=== PATIENT | male | born 1955 | race Caucasian/White ===

== ENCOUNTER → 2017-06-09 | Outpatient (CLI) | payer BC ==
[~2017-06-09] MED LIST: IBUP600T44 PO; OPTIRAY 320 IV PRN
--- NOTE | 2017-06-09 11:40 | DIAGNOSTIC IMAGING REPORT ---
ABDOMEN AND PELVIS CT WITH IV CONTRAST CT DOSE: 828.20 mGy.cm HISTORY: Left lower quadrant abdominal pain. TECHNIQUE: Multiaxial CT images of the abdomen and pelvis were performed following the use of intravenous contrast. A dose lowering technique was utilized adhering to the principles of ALARA. COMPARISON STUDY: Abdomen and pelvis CT 02/23/2015. FINDINGS: Stable 5 mm subpleural nodule within the left lower lobe. Therefore, this is considered to be benign. No pneumoperitoneum. No pneumatosis. No suspicious lytic or blastic osseous lesions. Cholecystectomy. The liver, left adrenal gland, and pancreas are unremarkable. There are few calcified granulomas within the spleen. No change in the 2.7 cm right adrenal gland nodule. There is a 1.5 cm enhancing nodule along the superior border of the pancreas best seen on image 121. This is stable compared to a 2012 examination. This likely abuts the adjacent splenic artery. Therefore, this likely represents a splenic artery aneurysm. No retroperitoneal lymphadenopathy. Small fat-containing left inguinal hernia. Prostate gland is mildly enlarged. Moderate bladder wall thickening. This could be due to underdistention. 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 No hydronephrosis. However, there is a 4 mm stone within the distal left ureter best in image 445. Multiple colonic diverticula. The descending colon is decompressed resulting in suboptimal evaluation. However, there is no definite bowel wall thickening or obstruction. IMPRESSION: 1. A 4 mm stone within the distal left ureter. No hydronephrosis at this time. 2. Horseshoe kidney. 3. Colonic diverticulosis. 4. Moderate bladder wall thickening. This may be due to underdistention. Recommend correlation with urinalysis. 5. No change in 1.5 cm enhancing nodule at the superior border of the pancreatic tail. Therefore, this favors a splenic artery aneurysm. 6. Stable right adrenal nodule. Electronically signed by: Chao Hughes M.D. 06/09/2017 11:38 AM Dictated Date/Time: 06/09/2017 11:26 AM
== END | disposition home or self-care (01) ==
LOC: C.CTS 10:50
PROVIDERS: ATTEND Nurse Practitioner Family
DX: N20.1 Calculus of ureter (principal); Q63.1 Lobulated, fused and horseshoe kidney; K57.30 Diverticulosis of large intestine without perforation or abscess without bleeding; K86.9 Disease of pancreas, unspecified; E27.9 Disorder of adrenal gland, unspecified; R93.41 Abnormal radiologic findings on diagnostic imaging of renal pelvis, ureter, or bladder; Z87.19 Personal history of other diseases of the digestive system

== ENCOUNTER → 2017-06-10 | Outpatient (CLI) | payer BC ==
[~2017-06-10] MED LIST changes: -OPTIRAY 320 IV PRN
--- NOTE | 2017-06-10 10:13 | DIAGNOSTIC IMAGING REPORT ---
KUB HISTORY: N20.0 Calculus of [id number] COMPARISON: Abdomen and pelvis CT 06/09/2017. FINDINGS: The bowel gas pattern is unremarkable. There are no dilated loops of small bowel to suggest an obstruction. No renal stones identified. A horseshoe kidney is again noted. Multiple calcifications in the deep pelvis are consistent with phleboliths. There is a faint 4 mm calcification within the left deep pelvis which may correspond to the distal left ureteral stone. No pneumoperitoneum or pneumatosis. IMPRESSION: A faint 4 mm calcification within the left deep pelvis which may correspond to the distal left ureteral stone. Horseshoe kidney. Electronically signed by: Chao Hughes M.D. 06/10/2017 10:11 AM Dictated Date/Time: 06/10/2017 10:09 AM
== END | disposition home or self-care (01) ==
LOC: C.RAD 09:16
PROVIDERS: ATTEND Nurse Practitioner Adult Health
DX: N20.0 Calculus of kidney (principal); Q63.1 Lobulated, fused and horseshoe kidney

== ENCOUNTER → 2017-07-07 | Outpatient (CLI) | payer BC ==
--- NOTE | 2017-07-07 09:50 | DIAGNOSTIC IMAGING REPORT ---
KUB HISTORY: N20.0 Calculus of [id number] Ureteric [id number] COMPARISON: KUB 06/10/2017, CT 06/09/2017. FINDINGS: The bowel gas pattern is non-obstructive. There is no organomegaly. The previously noted 4 mm calculus of the distal left ureter is no longer identified. Phleboliths are present within the pelvis. Cholecystectomy clips are noted. No pneumoperitoneum or pneumatosis. No fracture. Moderate degenerative changes involving the hips. IMPRESSION: 1. Previously noted 4 mm distal left ureteral calculus is no longer identified. Electronically signed by: Byron Cunningham M.D. 07/07/2017 9:49 AM Dictated Date/Time: 07/07/2017 9:37 AM
== END | disposition home or self-care (01) ==
LOC: C.RAD 09:20
PROVIDERS: ATTEND Urology
DX: N20.1 Calculus of ureter (principal); N20.0 Calculus of kidney

== ENCOUNTER → 2017-08-12 | Outpatient (CLI) | payer BC ==
--- NOTE | 2017-08-12 10:05 | DIAGNOSTIC IMAGING REPORT ---
KUB CLINICAL HISTORY: Ureteral stone. COMPARISON STUDY: CT of the abdomen and pelvis June 09, 2017 and KUB July 07, 2017. FINDINGS: There are cholecystectomy clips. Pelvic calcifications reflect phleboliths. No urinary calculi are identified. The left ureteral calculus shown on CT of June 09, 2017 is not visualized on this exam. IMPRESSION: No urinary calculi identified. Electronically signed by: Luther Carvajal M.D. 08/12/2017 10:04 AM Dictated Date/Time: 08/12/2017 10:01 AM
== END ==
LOC: C.RAD 09:24
PROVIDERS: ATTEND Urology
DX: N20.1 Calculus of ureter (principal)

== ENCOUNTER → 2018-01-27 | Outpatient (CLI) | payer OTHER ==
[~2018-01-27] MED LIST changes: +GABA-112 PO; +TAMS0.4C38 PO
[2018-01-27 11:23] LABS: BLOOD UREA NITROGEN 12 mg/dl (7-18); CALCIUM 8.5 mg/dl (8.5-10.1); CARBON DIOXIDE 26 mmol/L (21-32); CREATININE 1.23 mg/dl (0.60-1.40); GLUCOSE 95 mg/dl (70-99); POTASSIUM 3.8 mmol/L (3.5-5.1); SODIUM 142 mmol/L (136-145)
[2018-01-27 11:27] LABS: CHOLESTEROL 132 mg/dl (0-200); LDL CHOLESTEROL CALCULATED 63 mg/dl
== END | disposition home or self-care (01) ==
LOC: C.LAB 10:19
PROVIDERS: ATTEND Family Medicine
DX: N40.0 Benign prostatic hyperplasia without lower urinary tract symptoms (principal); E78.6 Lipoprotein deficiency; N20.0 Calculus of kidney

== ENCOUNTER → 2018-01-28 | Outpatient (CLI) | payer OTHER ==
[~2018-01-28] MED LIST changes: +OPTIRAY 320 IV PRN
--- NOTE | 2018-01-28 13:05 | DIAGNOSTIC IMAGING REPORT ---
ANGIO ABD/PELVIS WITH CONTRAST CLINICAL HISTORY: 62 years-old Male presenting with splenic arterial aneurysm. TECHNIQUE: Multidetector CT angiography of the abdomen and pelvis was performed after the administration of intravenous contrast. 3-D volumetric and/or maximum intensity projection (MIP) images were subsequently reconstructed for review. IV contrast: 119 mL of Optiray 320. A dose lowering technique was used consistent with the principles of ALARA (as low as reasonably achievable). Stenosis measurements were based on NASCET-like criteria. COMPARISON: 06/09/2017. CT DOSE (mGy.cm): The estimated cumulative dose is 648.89 mGy.cm. FINDINGS: Raiser Helper topogram: Unremarkable. Vasculature: Trace atherosclerosis of the normal caliber abdominal aorta. Celiac, superior mesenteric, bilateral single renal, and inferior mesenteric arteries patent. Common, internal, and external iliac arteries patent. Superficial and deep femoral arteries patent. No aneurysm or pseudoaneurysm. Remaining abdomen and pelvis: Lung bases: Dependent changes at the lung bases with nodularity and mosaic attenuation. This could relate to atelectasis and air trapping. Solid subpleural 6 mm nodule in the left lower lobe noted (series 3 image 18), unchanged from prior. Mild multichamber enlargement of the heart. No pericardial or pleural effusion. Liver: Normal morphology. No focal lesion allowing for the early arterial phase of contrast. Conventional hepatic arterial anatomy. Biliary: Mild biliary ductal prominence likely a reservoir effect in the post cholecystectomy state. Gallbladder surgically absent. Pancreas: Moderate parenchymal atrophy. An enhancing round 13 mm lesion is again noted immediately anterior to the splenic artery though there is a clear fat plane this mass from the artery. No change in the appearance of this enhancing lesion since the prior exam. Notably, the enhancement is less than the density of the adjacent artery. Splenic artery and vein patent and normal in caliber. Spleen: Parenchymal calcification could suggest prior granulomatous infection. Normal spleen size. Adrenal glands: Stable appearance of the 2.5 cm indeterminate nodule in the right adrenal gland, unchanged from prior exam. Left adrenal gland normal. Kidneys and ureters: Redemonstration of the horseshoe kidney with mild pelviectasis. 2 separate ureters, which are nondistended. The previously noted calculus in the distal left ureter is no longer present. No nephrolithiasis. No hydronephrosis. Normal renal enhancement pattern for the phase of contrast. Bladder: Circumferential wall thickening suggested though the bladder is under distended. Pelvic organs: Prostate enlargement likely secondary to benign prostatic hyperplasia. Bowel: Diverticulosis of the sigmoid colon without pericolonic inflammatory change. No bowel obstruction. Peritoneal cavity: No free fluid or intraperitoneal gas. Lymph nodes: No enlarged lymph nodes in the abdomen or pelvis. Abdominal wall: Fat-containing left inguinal hernia. Bilateral gynecomastia. Musculoskeletal: Degenerative changes of the spine. Superior endplate concavity of T12. Osteopenia. IMPRESSION: 1. Findings not consistent with splenic artery aneurysm given the mismatch in enhancement of the adjacent splenic artery and the focal lesion in the pancreatic tail. Furthermore, there is a fat plane visible between the lesion and the splenic artery. No change in size of the lesion. The primary differential consideration is intrapancreatic splenule, which is favored given the lack of change since 2012. Neoplastic considerations are considered highly unlikely but include pancreatic endocrine tumor, pancreatic acinar cell tumor, or schwannoma. 2. Stable right adrenal nodule, which is unchanged since 2012 and consistent with a benign adenoma. 3. Diverticulosis. 4. Horseshoe kidney. Interval passage of the previously noted distal left ureteral calculus. 5. Bladder wall thickening likely indicating chronic bladder outlet obstruction secondary to prostatomegaly. Electronically signed by: Mark Shanks M.D. 01/28/2018 1:04 PM Dictated Date/Time: 01/28/2018 12:47 PM
== END | disposition home or self-care (01) ==
LOC: C.CTS 12:03
PROVIDERS: ATTEND Family Medicine
DX: I72.8 Aneurysm of other specified arteries (principal); E27.9 Disorder of adrenal gland, unspecified; K57.90 Diverticulosis of intestine, part unspecified, without perforation or abscess without bleeding; Q63.1 Lobulated, fused and horseshoe kidney; N32.9 Bladder disorder, unspecified